=== PATIENT | female | born 1995 | race Two or more races ===

== ENCOUNTER 2019-05-11 11:20 | Emergency (ER) | payer OTHER ==
[~2019-05-11] VITALS: Ht 157.5 cm; Wt 59.9 kg
== END 2019-05-11 21:50 | disposition home or self-care (01) ==
LOC: EDBD 11:20 → ER 11:20
DX: O23.41 Unspecified infection of urinary tract in pregnancy, first trimester (principal); O28.9 Unspecified abnormal findings on antenatal screening of mother; O26.851 Spotting complicating pregnancy, first trimester; O36.80X1 Pregnancy with inconclusive fetal viability, fetus 1; Z3A.01 Less than 8 weeks gestation of pregnancy

== ENCOUNTER 2019-12-26 09:22 | Inpatient (IN) | payer OTHER ==
[~2019-12-26] VITALS: Ht 157.5 cm; Wt 3.2 kg
== END 2019-12-29 16:40 | disposition home or self-care (01) | DRG 788 ==
LOC: LDR 09:22 → O/R 13:21 → OB/GYN 15:26
PROVIDERS: ADMIT Obstetrics & Gynecology; ATTEND Obstetrics & Gynecology
PROC: 4A1HXFZ Monitoring of Products of Conception, Cardiac Rhythm, External Approach (ICD-10-PCS; 2019-12-26)
PROC: 3E033VJ Introduction of Other Hormone into Peripheral Vein, Percutaneous Approach (ICD-10-PCS; 2019-12-26)
PROC: 10D00Z1 Extraction of Products of Conception, Low, Open Approach (ICD-10-PCS; principal; 2019-12-26 13:00)
DX: O64.1XX0 Obstructed labor due to breech presentation, not applicable or unspecified (principal); Z3A.38 38 weeks gestation of pregnancy; Z37.0 Single live birth; O24.420 Gestational diabetes mellitus in childbirth, diet controlled; Z20.828 Contact with and (suspected) exposure to other viral communicable diseases

== ENCOUNTER 2020-01-28 11:04 | Emergency (ER) | payer OTHER ==
[~2020-01-28] VITALS: Ht 157.5 cm; Wt 81.6 kg
== END 2020-01-28 17:28 | disposition home or self-care (01) ==
LOC: ER 11:04
DX: L76.82 Other postprocedural complications of skin and subcutaneous tissue (principal)

== ENCOUNTER → 2023-10-07 11:38 | Outpatient (CLI) | payer OTHER | END | disposition home or self-care (01) | LOC: PRENATAL 11:38 | PROVIDERS: ATTEND Obstetrics & Gynecology Maternal & Fetal Medicine | DX: O36.80X0 Pregnancy with inconclusive fetal viability, not applicable or unspecified (principal); Z36.82 Encounter for antenatal screening for nuchal translucency; O34.219 Maternal care for unspecified type scar from previous cesarean delivery; O99.211 Obesity complicating pregnancy, first trimester; O99.891 Other specified diseases and conditions complicating pregnancy; Z3A.12 12 weeks gestation of pregnancy ==

== ENCOUNTER 2023-11-25 13:12 | Outpatient (CLI) | payer OTHER | END 2023-11-25 13:13 | disposition home or self-care (01) | LOC: PRENATAL 13:12 | PROVIDERS: ATTEND Obstetrics & Gynecology Maternal & Fetal Medicine | DX: O35.3XX0 Maternal care for (suspected) damage to fetus from viral disease in mother, not applicable or unspecified (principal); O44.00 Complete placenta previa NOS or without hemorrhage, unspecified trimester; O34.219 Maternal care for unspecified type scar from previous cesarean delivery; O99.891 Other specified diseases and conditions complicating pregnancy; O99.210 Obesity complicating pregnancy, unspecified trimester; O28.5 Abnormal chromosomal and genetic finding on antenatal screening of mother; Z3A.19 19 weeks gestation of pregnancy ==

== ENCOUNTER 2023-11-27 08:11 | Outpatient (CLI) | payer OTHER | END 2023-11-27 08:13 | disposition home or self-care (01) | LOC: PRENATAL 08:11 | PROVIDERS: ATTEND Obstetrics & Gynecology Maternal & Fetal Medicine | DX: O28.5 Abnormal chromosomal and genetic finding on antenatal screening of mother (principal); Z3A.19 19 weeks gestation of pregnancy ==

== ENCOUNTER 2023-11-27 08:24 | Outpatient (CLI) | payer OTHER | END 2023-11-27 13:41 | disposition home or self-care (01) | LOC: LAB 08:24 | PROVIDERS: ATTEND Obstetrics & Gynecology Maternal & Fetal Medicine | DX: Z00.00 Encounter for general adult medical examination without abnormal findings (principal) ==

== ENCOUNTER 2024-01-26 10:33 | Outpatient (CLI) | payer OTHER ==
[2024-01-27] MEDS ORDERED: PRENA1 CHEW TA1.4 MG (16:47)
[2024-01-27] MEDS ORDERED: CHILDREN'S ASPI81 MG (16:47)
[2024-01-27] MEDS ORDERED: TOPROL XL25 M1 (16:47)
== END 2024-01-26 10:34 | disposition home or self-care (01) ==
LOC: PRENATAL 10:33
PROVIDERS: ATTEND Obstetrics & Gynecology Maternal & Fetal Medicine
DX: O26.849 Uterine size-date discrepancy, unspecified trimester (principal); O36.8199 Decreased fetal movements, unspecified trimester, other fetus; O34.219 Maternal care for unspecified type scar from previous cesarean delivery; O99.891 Other specified diseases and conditions complicating pregnancy; O99.210 Obesity complicating pregnancy, unspecified trimester; O28.5 Abnormal chromosomal and genetic finding on antenatal screening of mother; O24.419 Gestational diabetes mellitus in pregnancy, unspecified control; Z3A.28 28 weeks gestation of pregnancy

== ENCOUNTER 2024-01-27 16:39 | Emergency (ER) | payer OTHER ==
[~2024-01-27] VITALS: Ht 157.5 cm; Wt 96.2 kg
[2024-01-27] MEDS ORDERED: CHILDREN'S ASPI81 MG (16:47)
[2024-01-27] MEDS ORDERED: TOPROL XL25 M1 (16:47)
[2024-01-27] MEDS ORDERED: PRENA1 CHEW TA1.4 MG (16:47)
[2024-01-27 19:57] LABS: HEMOGLOBIN 11.7 g/dL (12.0-15.00); MEAN CELL VOLUME 86.6 fL (80.00-100.00); MEAN CORPUSCULAR HEMOGLOBIN 28.9 pg (27.00-32.0); MEAN CORPUSCULAR HGB CONC 33.4 g/dl (32.0-36.0); RED BLOOD COUNT 4.04 M/uL (4.00-6.00); RED CELL DISTRIBUTION WIDTH 14.4 % (11.5-14.5)
[2024-01-27 19:59] LABS: PLATELET COUNT 125 K/uL (150-450)
== END 2024-01-27 21:41 | disposition home or self-care (01) ==
LOC: ER 16:41
DX: J10.1 Influenza due to other identified influenza virus with other respiratory manifestations (principal); Z20.822 Contact with and (suspected) exposure to COVID-19

== ENCOUNTER → 2024-03-04 | Emergency (ER) | payer OTHER ==
[~2024-03-04] VITALS: Ht 157.5 cm; Wt 94.8 kg
[~2024-03-04] MED LIST: CHILDREN'S ASPI81 MG; HUMULIN N100 UNIT/2 SUBCUTANEO; INSULIN SYRING1 EA29 SUBCUTANEO; PRENA1 CHEW TA1.4 MG; TOPROL XL25 M1
[2024-03-04 19:51] VITALS: BP 131/82; O2SAT 100
== END | disposition left against medical advice (07) ==
LOC: ER 19:15
DX: Z53.21 Procedure and treatment not carried out due to patient leaving prior to being seen by health care provider (principal)

== ENCOUNTER 2024-03-07 08:43 | Outpatient (CLI) | payer OTHER | END 2024-03-07 08:44 | disposition home or self-care (01) | LOC: PRENATAL 08:43 | PROVIDERS: ATTEND Obstetrics & Gynecology Maternal & Fetal Medicine | DX: O26.849 Uterine size-date discrepancy, unspecified trimester (principal); O36.8199 Decreased fetal movements, unspecified trimester, other fetus; O34.219 Maternal care for unspecified type scar from previous cesarean delivery; O99.210 Obesity complicating pregnancy, unspecified trimester; O28.5 Abnormal chromosomal and genetic finding on antenatal screening of mother; O24.419 Gestational diabetes mellitus in pregnancy, unspecified control; Z3A.35 35 weeks gestation of pregnancy ==

== ENCOUNTER 2024-04-01 13:12 | Inpatient (IN) | payer OTHER ==
[~2024-04-01] VITALS: Ht 157.5 cm; Wt 3.2 kg
[2024-04-01 12:43] LABS: HEMATOCRIT 38.4 % (36.0-45.00); HEMOGLOBIN 12.8 g/dL (12.0-15.00); MEAN CORPUSCULAR HEMOGLOBIN 28.6 pg (27.00-32.0); MEAN CORPUSCULAR HGB CONC 33.2 g/dl (32.0-36.0); RED BLOOD COUNT 4.46 M/uL (4.00-6.00); RED CELL DISTRIBUTION WIDTH 14.9 % (11.5-14.5)
[2024-04-01 12:46] LABS: URINE APPEARANCE Clear; URINE BILIRRUBIN Negative (NEGATIVE); URINE BLOOD Negative; URINE COLOR Yellow; URINE KETONE 15 (NEGATIVE); URINE LEUKOCYTE Trace; URINE NITRATE Negative; URINE PROTEIN Negative (NEGATIVE)
[2024-04-01 12:51] LABS: URINE EPITHELIAL CELLS 48.6 uL (0.0-38.8); URINE RBC 2.3 uL (0.0-20.8)
[2024-04-01 12:56] LABS: PLATELET COUNT 104 K/uL (150-450)
[2024-04-01 13:01] LABS: URINE GLUCOSE 250 MG/DL (NEGATIVE)
[2024-04-01 13:12] LABS: ALBUMIN 2.7 gm/dL (3.4-5.0); BILIRUBIN TOTAL 0.31 mg/dL (0.3-1.2); CALCIUM 9.3 mg/dL (8.5-10.1); CREATININE SERUM 0.5 mg/dL (0.55-1.02); GFR 144.87; GLOBULINA 3.6 G/DL (2.4-3.5); POTASSIUM 4.03 mEq/L (3.5-5.1); TOTAL PROTEIN 6.3 gm/dL (6.4-8.2)
[2024-04-01 13:14] LABS: INR 0.97; PARTIAL THROMBOPLASTIN TIME 26.8 SECONDS (22.0-34.0); PROTHROMBIN TIME 10.6 SECONDS (9.0-11.5)
[2024-04-11] MEDS ORDERED: HUMULIN 70100 UNIT/2 SUBCUTANEO (08:39)
[2024-04-11 08:40] VITALS: BP 119/81
[2024-04-11] MEDS ORDERED: CEFAZOLIN SODIUM 1,000 MG VIAL ONE (10:01)
[2024-04-11] MEDS ORDERED: OXYTOCIN 10 UNITS/ML VIAL ONE ×2 (10:05→13:38)
[2024-04-11] MEDS ORDERED: ERYTHROMYCIN BASE OPHT 1GM EACH TUBE OP ONE (10:06)
[2024-04-11] MEDS ORDERED: MORPHINE SULFATE 4 MG/ML CARTRIDGE IV PRN (11:30)
[2024-04-11] MEDS ORDERED: SIMETHICONE 125 MG CAPSULE PO SCH (13:00)
[2024-04-11] MEDS ORDERED: MORPHINE SULFATE 4 MG/ML VIAL IV ONE (13:15)
[2024-04-11] MEDS ORDERED: OXYTOCIN 1,000 ML IV SCH (13:30)
[2024-04-11] MEDS ORDERED: RINGERS SOLUTION,LACTATED 1,000 ML IV SCH (13:30)
[2024-04-11 14:14] VITALS: BP 109/63
[2024-04-11 16:11] VITALS: BP 111/69
[2024-04-11] MEDS ORDERED: DOCUSATE SODIUM 100MG CAP PO SCH (17:00)
[2024-04-11 17:38] LABS: HEMATOCRIT 39.6 % (36.0-45.00); MEAN CELL VOLUME 85.8 fL (80.00-100.00); MEAN CORPUSCULAR HEMOGLOBIN 28.2 pg (27.00-32.0); MEAN CORPUSCULAR HGB CONC 32.9 g/dl (32.0-36.0); RED BLOOD COUNT 4.61 M/uL (4.00-6.00); RED CELL DISTRIBUTION WIDTH 14.9 % (11.5-14.5)
[2024-04-11 18:11] LABS: PLATELET COUNT 112 K/uL (150-450)
[2024-04-11 21:26] VITALS: BP 114/76
[2024-04-12 00:37] VITALS: BP 134/76
[2024-04-12 05:57] VITALS: BP 124/75
[2024-04-12 08:43] VITALS: BP 134/84
[2024-04-12] MEDS ORDERED: IBUprofen 400 MG TABLET PO SCH (09:00)
[2024-04-12 15:55] VITALS: BP 116/77
[2024-04-13 01:34] VITALS: BP 115/76
[2024-04-13 08:43] VITALS: BP 131/74
[2024-04-13 16:54] VITALS: BP 122/84
[2024-04-14 00:20] VITALS: BP 133/74
[2024-04-14 05:02] VITALS: BP 107/65
[2024-04-14 08:14] VITALS: BP 131/75
== END 2024-04-14 14:28 | disposition home or self-care (01) | DRG 788 ==
LOC: LDR 04-11 08:57 → OB/GYN 04-11 08:58 → O/R 04-11 08:58 → LDR 04-11 11:06 → OB/GYN 04-11 13:13
PROVIDERS: Specialist; ADMIT Obstetrics & Gynecology; ATTEND Obstetrics & Gynecology
PROC: 4A1HXCZ Monitoring of Products of Conception, Cardiac Rate, External Approach (ICD-10-PCS; 2024-04-11)
PROC: 10D00Z1 Extraction of Products of Conception, Low, Open Approach (ICD-10-PCS; principal; 2024-04-11 11:00)
DX: O34.211 Maternal care for low transverse scar from previous cesarean delivery (principal); O24.420 Gestational diabetes mellitus in childbirth, diet controlled; Z3A.39 39 weeks gestation of pregnancy; Z37.0 Single live birth